=== PATIENT | male | born 1980 | race Caucasian/White ===

== ENCOUNTER → 2017-08-23 | Outpatient (CLI) | payer OTHER | LOC: FIMAGING 15:47 | PROVIDERS: ATTEND Podiatrist Foot & Ankle Surgery | DX: I82.4Z1 Acute embolism and thrombosis of unspecified deep veins of right distal lower extremity (principal) ==

== ENCOUNTER → 2017-10-04 | Outpatient (CLI) | payer OTHER ==
[~2017-10-04] MED LIST: IOPAMIDOL (ISOVUE 370) 100 ML BTL IV ONE
== END ==
LOC: FIMAGING 12:14
PROVIDERS: ATTEND Internal Medicine
DX: I82.4Z1 Acute embolism and thrombosis of unspecified deep veins of right distal lower extremity (principal); R07.9 Chest pain, unspecified; Z79.01 Long term (current) use of anticoagulants
CPT/HCPCS: Q9967

== ENCOUNTER 2019-01-01 14:06 | Emergency (ER) | payer OTHER ==
--- NOTE | 2019-01-01 14:43 | EDPHY ---
H & P Stated Complaint: Chest pain, palpitations Time Seen by Provider: 01/01/19 14:17 HPI/ROS: CHIEF COMPLAINT: Chest pain, palpitations HISTORY OF PRESENT ILLNESS: The patient presents to the ED for evaluation of chest pain and palpitations. The patient's symptoms have been occurring since . He reports that he is had constant substernal discomfort since that time. He also reports palpitations. The patient does report exercising hard on Wednesday without symptoms of chest pain or shortness of breath. The patient does report he is under fair amount of stress. The patient has no risk factors for coronary artery disease. The patient has remote history of a DVT following a calf injury a year ago. The patient was anticoagulated for 4 months. The patient denies any pleuritic chest pain. He denies any asymmetric calf pain or swelling. The patient denies fever, cough or congestion. He denies any history of exertional chest pain or shortness of breath. REVIEW OF SYSTEMS: A comprehensive 10 point review of systems is otherwise negative aside from elements mentioned in the history of present illness. Source: Patient, Family - Personal History Current Tetanus/Diphtheria Vaccine: Unsure - Medical/Surgical History Hx Asthma: No Hx Chronic Respiratory Disease: No Hx Diabetes: No Hx Cardiac Disease: No Hx Renal Disease: No Hx Cirrhosis: No Hx Alcoholism: No Hx HIV/AIDS: No Hx Splenectomy or Spleen Trauma: No - Social History Smoking Status: Never smoked - Physical Exam Exam: General Appearance: Alert, no distress Eyes: Pupils equal and round no pallor or injection ENT, Mouth: Mucous membranes moist Respiratory: There are no retractions, lungs are clear to auscultation Cardiovascular: Regular rate and rhythm Gastrointestinal: Abdomen is soft and nontender, no masses, bowel sounds normal Neurological: A&O, normal motor function, normal sensory exam, normal cranial nerves Skin: Warm and dry, no rashes Musculoskeletal: Neck is supple nontender Extremities: symmetrical, full range of motion Constitutional: Initial Vital Signs Temperature (C) 36.9 C 01/01/19 14:15 Heart Rate 82 01/01/19 14:15 Respiratory Rate 16 01/01/19 14:15 Blood Pressure 165/90 H 01/01/19 14:15 O2 Sat (%) 98 01/01/19 14:15 O2 Delivery Mode Room Air Allergies/Adverse Reactions: No Known Allergies Allergy (Unverified 01/01/19 14:15) Home Medications: Medication Instructions Recorded NK [No Known Home Meds] 01/01/19 Medical Decision Making - Diagnostics EKG Interpretation: EKG: Complete interpretation has been separately recorded in the [employer] archive. Summary impression: Sinus rhythm, rate 74, nonspecific ST T wave changes noted ED Course/Re-evaluation: The patient has a HEART score of 0 EKG demonstrates nonspecific changes without evidence of ischemia. Despite 4 days of constant symptoms the patient's troponin is normal. The patient was placed on a surveillance system monitor for 1 hr. The patient was observed to have no evidence of arrhythmia monitoring ED. The patient is comfortable following up with Cardiology for stress testing and consideration of a Holter monitor. He is advised to return to the ED for markedly worsening symptoms or other concerns. Differential Diagnosis: Differential diagnosis considered includes acute coronary syndrome, pericarditis , myocarditis, globus pallidus - Data Points Laboratory Results: 01/01/19 14:37 POC Troponin I 0.00 ng/mL ng/mL (0.00-0.08) Point of Care Test Results: Chemistry 01/01/19 14:37 POC Troponin I 0.00 ng/mL ng/mL (0.00-0.08) Departure - Departure Disposition: Home, Routine, Self-Care Clinical Impression: Chest pain Condition: Good Instructions: Chest Pain (ED) Additional Instructions: 1. Based upon the testing done in the Emergency Department today we see no evidence of a heart attack. 2. We are unable to fully exclude coronary artery disease based upon the testing available in the Emergency Department. 3. For this reason, we would like you to be seen by cardiology for consideration of additional testing within the next 3 days. 4. Please contact the [employer] operator you have been referred to schedule this appointment as soon as possible. Their offices are typically open from 8:30am- 5pm M-F. 5. Please return to the Emergency Department immediately for any recurrent chest pain, difficulty breathing or other concerns. Referrals: Anderson Yang MD [Primary Care Provider] - As per Instructions Taylor Pate MD [Medical Doctor] - As per Instructions
--- NOTE | 2019-01-01 15:04 | CPEKG ---
Test Reason : OPEN Blood Pressure : / mmHG Vent. Rate : 074 BPM Atrial Rate : 075 BPM P-R Int : 159 ms QRS Dur : 127 ms QT Int : 403 ms P-R-T Axes : 077 084 049 degrees QTc Int : 448 ms Sinus rhythm Confirmed by Jose A Kinsey ([id number]) on 01/01/2019 3:04:08 PM Referred By: Jose A Kinsey Confirmed By:Jose A Kinsey
[2019-01-01 15:36] VITALS: BP 126/84
== END 2019-01-01 15:35 | disposition home or self-care (01) ==
DX: R07.9 Chest pain, unspecified (principal); R00.2 Palpitations; Z86.718 Personal history of other venous thrombosis and embolism
CPT/HCPCS: 84484-ER